=== PATIENT | male | born 1960 | race Caucasian/White ===

== ENCOUNTER 2020-09-17 10:07 | Day surgery (SDC) | payer OTHER ==
[~2020-09-17] VITALS: Ht 190.5 cm; Wt 122.7 kg
[~2020-09-17 10:07] MED LIST: ALBUTEROL; ALOG25TA2 PO; AMLO-150 PO; AMLO-211 PO; APIX5TAB PO; ASPI-515 PO; ATOR-2 PO; DULO30CA2 PO; EMPA25TA PO; GLIP10TA13 PO; INSU100V8 SQ; LOSA50TA14 PO; METF500T17 PO; METO25TA91 PO; PROPOFOL 10 MG/ML, 20ML ONE; SIMV10TA18 PO
[2020-09-17 10:39] VITALS: BP 142/93
[2020-09-17] MEDS ORDERED: APIXABAN 5 MG TABLET PO STA (10:57)
[2020-09-17 11:03] LABS: ANION GAP 7 mmol/L (5-15); CALCIUM 8.8 mg/dL (8.5-10.1); CHLORIDE 107 mmol/L (98-107); CREATININE 1.09 mg/dL (0.7-1.3)
[2020-09-17] MEDS ORDERED: APIXABAN 5 MG TABLET ONE (11:14)
== END 2020-09-17 13:07 | disposition home or self-care (01) ==
LOC: CACL 10:07
PROVIDERS: ATTEND Internal Medicine Cardiovascular Disease
DX: I48.92 Unspecified atrial flutter (principal); I11.0 Hypertensive heart disease with heart failure; I50.9 Heart failure, unspecified; I42.9 Cardiomyopathy, unspecified; E11.9 Type 2 diabetes mellitus without complications; E78.2 Mixed hyperlipidemia; G47.33 Obstructive sleep apnea (adult) (pediatric); F10.188 Alcohol abuse with other alcohol-induced disorder; Z79.01 Long term (current) use of anticoagulants; Z79.4 Long term (current) use of insulin; Z79.899 Other long term (current) drug therapy; Z82.49 Family history of ischemic heart disease and other diseases of the circulatory system; Y90.3 Blood alcohol level of 60-79 mg/100 ml
CPT/HCPCS: 36415; 80048; 92960; 93005; J2704

== ENCOUNTER 2021-01-10 06:08 | Day surgery (SDC) | payer OTHER ==
[~2021-01-10] VITALS: Ht 190.5 cm; Wt 129.5 kg
[~2021-01-10 06:08] MED LIST changes: -ASPI-515 PO; +ASPI-963 PO; -PROPOFOL 10 MG/ML, 20ML ONE
[2021-01-10 06:47] VITALS: BP 170/94
[2021-01-10] MEDS ORDERED: SODIUM CHLORIDE 0.9% 1,000 ML IV SCH (07:00)
[2021-01-10] MEDS ORDERED: ATOR10TA9 PO (07:12)
[2021-01-10] MEDS ORDERED: AMLO-150 PO (07:13)
[2021-01-10] MEDS ORDERED: METF500T17 PO (07:13)
[2021-01-10 07:15] LABS: BASOPHILS % (AUTO) 1 % (0-1); EOSINOPHILS % (AUTO) 5 % (1-7); LYMPHOCYTES % (AUTO) 22 % (22-44); MEAN CORPUSCULAR HEMOGLOBIN 32.5 pg (27.5-34.5); MEAN CORPUSCULAR HGB CONC 34.2 g/dL (33.2-36.2); MEAN PLATELET VOLUME 7.5 fL (7.4-10.4); MONOCYTES % (AUTO) 14 % (2-9); NEUTROPHILS % (AUTO) 59 % (42-75); PLATELET COUNT 251 x10^3/uL (130-400)
[2021-01-10 07:17] LABS: MD NO
[2021-01-10 07:22] LABS: ANION GAP 8 mmol/L (5-15); CALCIUM 9.2 mg/dL (8.5-10.1); CHLORIDE 105 mmol/L (98-107); CREATININE 1.16 mg/dL (0.7-1.3)
[2021-01-10] MEDS ORDERED: APIXABAN 5 MG TABLET ONE (07:49)
[2021-01-10] MEDS ORDERED: LIDOCAINE 2%, 20ML ONE (07:49)
[2021-01-10] MEDS ORDERED: PROPOFOL 10 MG/ML, 20ML ONE ×2 (08:13→09:20)
[2021-01-10] MEDS ORDERED: FENTANYL PF 250 MCG/5ML ONE (08:13)
[2021-01-10] MEDS ORDERED: MIDAZOLAM 1 MG/ML, 2ML ONE (08:13)
[2021-01-10] MEDS ORDERED: ROCURONIUM 10MG/ML,5ML ONE (08:14)
[2021-01-10] MEDS ORDERED: PHENYLEPHRINE 10 MG/ML ONE (08:14)
[2021-01-10] MEDS ORDERED: DEXAMETHASONE 4 MG/ML, 1ML ONE ×2 (08:15)
[2021-01-10] MEDS ORDERED: REGULAR INSULIN 100 UNITS in SODIUM CHLORIDE 0.9% 99 ML IV PRN (08:30)
[2021-01-10] MEDS ORDERED: NEOSTIGMINE 1 MG/ML, 10ML ONE (09:20)
[2021-01-10] MEDS ORDERED: GLYCOPYRROLATE 0.2MG/1ML, 5ML ONE (09:20)
[2021-01-10] MEDS ORDERED: DIPHENHYDRAMINE 50 MG/ML, 1ML IVPush PRN (10:00)
[2021-01-10] MEDS ORDERED: DIAZEPAM 5 MG/ML, 2ML IVPush PRN (10:00)
[2021-01-10] MEDS ORDERED: HYDROmorphone 1 MG/ML, 1ML INJ IVPush PRN (10:00)
[2021-01-10] MEDS ORDERED: ACETAMINOPHEN 325 MG TABLET PO PRN (10:00)
[2021-01-10] MEDS ORDERED: MIDAZOLAM 1 MG/ML, 2ML IV PRN (10:00)
[2021-01-10] MEDS ORDERED: ALBUTEROL SULFATE 2.5 MG/3 ML NPPB PRN (10:00)
[2021-01-10] MEDS ORDERED: FENTANYL PF 100 MCG/2ML IV PRN (10:00)
[2021-01-10] MEDS ORDERED: PROMETHAZINE 12.5 MG SUPP PR PRN (10:00)
[2021-01-10] MEDS ORDERED: hydrALAzine 20 MG/ML, 1ML IV PRN (10:00)
[2021-01-10] MEDS ORDERED: OXYcodone 5 MG/5 ML ORAL.SOL UDC PO PRN (10:00)
[2021-01-10] MEDS ORDERED: MEPERIDINE/PF 25MG/0.5ML IVPush PRN (10:00)
[2021-01-10] MEDS ORDERED: PROMETHAZINE 25 MG/ML, 1ML IVPush PRN (10:00)
[2021-01-10] MEDS ORDERED: EPHEDRINE 50 MG/ML, 1ML IVPush PRN (10:00)
[2021-01-10] MEDS ORDERED: LABETALOL 5MG/ML, 20ML IV PRN (10:00)
[2021-01-10] MEDS ORDERED: ONDANSETRON 2MG/ML, 2ML IVPush PRN (10:00)
[2021-01-10 13:04] VITALS: BP 156/94
[2021-01-10] MEDS ORDERED: metFORMIN 500 MG TABLET PO SCH (17:00)
[2021-01-10] MEDS ORDERED: INSULIN GLARGINE 100 UNITS/ML, PEN SQ-INSULIN SCH (21:00)
[2021-01-10] MEDS ORDERED: ATORVASTATIN 10 MG TABLET PO SCH (21:00)
[2021-01-11] MEDS ORDERED: METOPROLOL SUCCINATE 25 MG TAB.ER.24H PO SCH (06:00)
[2021-01-11] MEDS ORDERED: LOSARTAN 25MG TABLET PO SCH (09:00)
[2021-01-11] MEDS ORDERED: AMLODIPINE 2.5 MG TABLET PO SCH (09:00)
[2021-01-11] MEDS ORDERED: DULOXETINE 30 MG CAPSULE.DR PO SCH (09:00)
[2021-01-11] MEDS ORDERED: Empagliflozin (Jardiance) 25 MG) PO SCH (09:00)
[2021-01-11] MEDS ORDERED: ALOGLIPTIN BENZOATE 25 MG PO SCH (09:00)
[2021-01-11] MEDS ORDERED: APIXABAN 5 MG TABLET PO SCH (09:00)
== END 2021-01-10 18:38 | disposition home or self-care (01) ==
LOC: CACL 06:08 → 5SO 10:59 → CACL 18:38
PROVIDERS: ATTEND Internal Medicine Cardiovascular Disease
DX: I48.92 Unspecified atrial flutter (principal); I10 Essential (primary) hypertension; E11.9 Type 2 diabetes mellitus without complications; E78.5 Hyperlipidemia, unspecified; G47.33 Obstructive sleep apnea (adult) (pediatric); Z79.4 Long term (current) use of insulin; Z79.899 Other long term (current) drug therapy; Z72.89 Other problems related to lifestyle; Z87.891 Personal history of nicotine dependence; Z20.822 Contact with and (suspected) exposure to COVID-19; Z98.890 Other specified postprocedural states
CPT/HCPCS: 36415; 71046; 80048; 82962; 85025; 93005; 93312; 93321; 93325; 93613; 93621; 93653; C1730; C1732; C1894; J1100; J2250; J2370; J2704; J2710; J3010; U0003; G0378